=== PATIENT | female | born 1970 | race Caucasian/White ===

== ENCOUNTER → 2023-01-10 | Outpatient (CLI) | payer OTHER, SELFPAY ==
[2023-01-10 18:01] LABS: CRP < 2.90 mg/L (0.0-3.0)
[2023-01-12 14:09] LABS: Endomysial Antibody IgA Negative (Negative); Immunoglobulin A 141 mg/dL (87-352); t-Transglutaminase IgA <2 U/mL (0-3)
== END | disposition home or self-care (01) ==
LOC: MTLAB 16:04
PROVIDERS: Referring Provider Internal Medicine Gastroenterology; Visit Provider Internal Medicine Gastroenterology
DX: R19.7 Diarrhea, unspecified (principal)
CPT/HCPCS: 36415; 82784; 83516; 86140; 86255